=== PATIENT | male | born 1965 | race Caucasian/White ===

== ENCOUNTER 2020-12-26 11:23 | Inpatient (IN) | payer MEDICARE, OTHER ==
[~2020-12-26] VITALS: Ht 180.3 cm; Wt 76.7 kg
[2020-12-26 11:59] LABS: HEMOGLOBIN 18.6 gm/dl (14.0-17.5); RED BLOOD COUNT 6.11 M/UL (4.20-5.50); WHITE BLOOD COUNT 26.6 K/UL (4.5-11.0)
[2020-12-27] MEDS ORDERED: WELLBUTRIN XL300 M1 PO (00:29)
[2020-12-27] MEDS ORDERED: VIIBRYD20 MG PO (00:29)
[2020-12-27 05:20] LABS: HEMOGLOBIN 15.2 gm/dl (14.0-17.5); RED BLOOD COUNT 5.05 M/UL (4.20-5.50)
[2020-12-27 05:28] LABS: BUN/CREATININE RATIO 24 (0-10)
[2020-12-27 23:21] LABS: HEMOGLOBIN 10.1 gm/dl (14.0-17.5); RED BLOOD COUNT 3.44 M/UL (4.20-5.50)
[2020-12-28 03:21] LABS: RED BLOOD COUNT 3.71 M/UL (4.20-5.50)
[2020-12-28 03:22] LABS: WHITE BLOOD COUNT 4.4 K/UL (4.5-11.0)
[2020-12-28 03:32] LABS: BUN/CREATININE RATIO 25 (0-10)
[2020-12-28 06:30] LABS: HEMOGLOBIN 9.4 gm/dl (14.0-17.5)
[2020-12-28 06:51] LABS: BUN/CREATININE RATIO 22 (0-10)
--- NOTE | 2020-12-28 07:42 | NUR ---
0240 MD Pacheco at bedside, fentanyl push given by . Verbal orders received. 0500 MD aware of low BP, 500 LR bolus and albumin orders received. pt placed in trendelenburg. Orders to start TPN @ 50ml/hr, LR @ 75ml/hr for a total intake of 125ml/hr. 0515 Orders received for Levo drip. 0545 Orders placed for H&H.
[2020-12-28 07:46] LABS: HEMOGLOBIN 9.2 gm/dl (14.0-17.5); RED BLOOD COUNT 3.14 M/UL (4.20-5.50); WHITE BLOOD COUNT 6.1 K/UL (4.5-11.0)
--- NOTE | 2020-12-28 07:48 | NUR ---
See paper charting for q15min VS.
[2020-12-28 16:11] LABS: HEMOGLOBIN 9.7 gm/dl (14.0-17.5); RED BLOOD COUNT 3.29 M/UL (4.20-5.50); WHITE BLOOD COUNT 6.1 K/UL (4.5-11.0)
[2020-12-28 23:01] LABS: HEMOGLOBIN 8.9 gm/dl (14.0-17.5); RED BLOOD COUNT 2.99 M/UL (4.20-5.50); WHITE BLOOD COUNT 5.5 K/UL (4.5-11.0)
[2020-12-29 08:38] LABS: HEMOGLOBIN 8.8 gm/dl (14.0-17.5)
[2020-12-29 08:49] LABS: WHITE BLOOD COUNT 7.3 K/UL (4.5-11.0)
[2020-12-29 09:10] LABS: BUN/CREATININE RATIO 19 (0-10)
[2020-12-29 18:18] LABS: BUN/CREATININE RATIO 18 (0-10)
[2020-12-30 08:32] LABS: HEMOGLOBIN 8.2 gm/dl (14.0-17.5); RED BLOOD COUNT 2.79 M/UL (4.20-5.50); WHITE BLOOD COUNT 7.4 K/UL (4.5-11.0)
[2020-12-30 09:04] LABS: BUN/CREATININE RATIO 16 (0-10)
[2020-12-31 09:23] LABS: WHITE BLOOD COUNT 5.1 K/UL (4.5-11.0)
[2020-12-31 09:24] LABS: RED BLOOD COUNT 2.4 M/UL (4.20-5.50)
[2020-12-31 09:46] LABS: BUN/CREATININE RATIO 19 (0-10)
[2020-12-31 11:06] LABS: BUN/CREATININE RATIO 18 (0-10)
[2020-12-31 19:47] LABS: HEMOGLOBIN 11.7 gm/dl (14.0-17.5); RED BLOOD COUNT 4.24 M/UL (4.20-5.50); WHITE BLOOD COUNT 7.6 K/UL (4.5-11.0)
[2020-12-31 22:49] LABS: BUN/CREATININE RATIO 16 (0-10)
[2021-01-01 09:24] LABS: HEMOGLOBIN 10.2 gm/dl (14.0-17.5); WHITE BLOOD COUNT 9.5 K/UL (4.5-11.0)
[2021-01-01 09:30] LABS: RED BLOOD COUNT 3.81 M/UL (4.20-5.50)
[2021-01-01 10:00] LABS: BUN/CREATININE RATIO 16 (0-10)
[2021-01-01 21:32] LABS: BUN/CREATININE RATIO 15 (0-10)
[2021-01-02 04:09] LABS: HEMOGLOBIN 9.9 gm/dl (14.0-17.5); RED BLOOD COUNT 3.73 M/UL (4.20-5.50); WHITE BLOOD COUNT 10.8 K/UL (4.5-11.0)
[2021-01-02 04:50] LABS: BUN/CREATININE RATIO 12 (0-10)
[2021-01-02 08:36] LABS: HEMOGLOBIN 10.3 gm/dl (14.0-17.5); RED BLOOD COUNT 3.84 M/UL (4.20-5.50); WHITE BLOOD COUNT 12.1 K/UL (4.5-11.0)
[2021-01-02 08:58] LABS: BUN/CREATININE RATIO 13 (0-10)
[2021-01-02 11:47] LABS: BUN/CREATININE RATIO 12 (0-10)
[2021-01-03 04:40] LABS: BUN/CREATININE RATIO 14 (0-10)
[2021-01-03 04:41] LABS: HEMOGLOBIN 9.8 gm/dl (14.0-17.5); RED BLOOD COUNT 3.55 M/UL (4.20-5.50); WHITE BLOOD COUNT 11.2 K/UL (4.5-11.0)
[2021-01-04 04:41] LABS: HEMOGLOBIN 9.3 gm/dl (14.0-17.5); RED BLOOD COUNT 3.42 M/UL (4.20-5.50); WHITE BLOOD COUNT 10.8 K/UL (4.5-11.0)
[2021-01-04 05:06] LABS: BUN/CREATININE RATIO 19 (0-10)
[2021-01-05 05:33] LABS: HEMOGLOBIN 10.5 gm/dl (14.0-17.5); WHITE BLOOD COUNT 10.8 K/UL (4.5-11.0)
[2021-01-05 05:34] LABS: RED BLOOD COUNT 3.81 M/UL (4.20-5.50)
[2021-01-05 06:55] LABS: BUN/CREATININE RATIO 18 (0-10)
[2021-01-06 05:32] LABS: WHITE BLOOD COUNT 8.6 K/UL (4.5-11.0)
[2021-01-06 05:36] LABS: HEMOGLOBIN 8.4 gm/dl (14.0-17.5); RED BLOOD COUNT 3.2 M/UL (4.20-5.50)
[2021-01-06 05:41] LABS: BUN/CREATININE RATIO 20 (0-10)
[2021-01-07 02:56] LABS: HEMOGLOBIN 9.2 gm/dl (14.0-17.5); RED BLOOD COUNT 3.36 M/UL (4.20-5.50); WHITE BLOOD COUNT 6.6 K/UL (4.5-11.0)
[2021-01-07 03:23] LABS: BUN/CREATININE RATIO 20 (0-10)
[2021-01-08 03:45] LABS: BUN/CREATININE RATIO 24 (0-10)
--- NOTE | 2021-01-08 12:18 | NUR ---
PER MD ORDER WOUND VAC DISCONTINUED. WOUND CLEANED AND WET TO DRY DRESSING PLACED PATIENT TOLERATED WELL. WOUND VAC LEFT IN ROOM IN CASE MD DECIDES TO USE AGAIN. WILL CONTACT HAND POTTER WHEN NO LONGER USED FOR PROPER STORAGE.
[2021-01-09 03:10] LABS: BUN/CREATININE RATIO 25 (0-10)
[2021-01-10 05:24] LABS: HEMOGLOBIN 9.3 gm/dl (14.0-17.5); RED BLOOD COUNT 3.47 M/UL (4.20-5.50); WHITE BLOOD COUNT 5.1 K/UL (4.5-11.0)
[2021-01-10 05:56] LABS: BUN/CREATININE RATIO 29 (0-10)
--- NOTE | 2021-01-10 14:36 | NUR ---
1120 - INFORMED DR. GIBSON OF EXCESSIVE DRAINAGE FROM INCISION SITE/ DRESSING COMPLETELY SATURATED. DRAINAGE BAG ALMOST FULL. AWARE - STATED TO CONTINUE WITH W/D DRESSING CHANGES
[2021-01-11 10:53] LABS: BUN/CREATININE RATIO 28 (0-10)
--- NOTE | 2021-01-11 23:29 | NUR ---
1920 PATIENT 0MIDLINE WOUND DRAINAGE LEAKING. AREA CLEANED WITH WC AND WET TO DRY DRESSING PLACED. 2119 PATIET REQUEST DRESSING CHANGE. DRESSING CONTAINED FECAL DRAINAGE. AREA CLEANED AND REDRESSED. ILEOSTY CHANGED WELL DUE TO LEAKING.
--- NOTE | 2021-01-12 17:45 | NUR ---
PT DRESSING CHANGED X2. PT HAD ALOT OF OUTPUT THROUGH HIS FISTULA CONTAMINATING THE DRESSING. THE PT TOLERATED IT WELL AND THERE WAS NO SIGNS OF INFECTION. WILL CONTINUE TO MONITOR.
[2021-01-13 03:55] LABS: BUN/CREATININE RATIO 24 (0-10)
--- NOTE | 2021-01-13 16:00 | NUR ---
PTS DRESSING CHANGED. [id number]. PT REQUESTED TO TALK TO WOUND CARE NURSE. UCHE CAME OVER TO TALK TO HIM AND GIVE SOME ADVICE ABOUT HIS EXCOURATION AROUND HIS FISTULA. SHE GAVE HIM A BOX OF BARRIER WIPES MENTIONED BOTH THE ANTIFUNGAL AND BARRIER CREAM TO HELP WITH THE REDNESS. THE PATIENT HAD THE DRESSING CHANGED 3X THIS SHIFT. THE PATIENT TOLERATED IT WELL AND THE WOUND BED IS BRIGHT AND PINK. SOME SLOUTHING IN THE BED. NO SIGNS OF INFECTION IN THE WOUND. WILL CONTINUE TO MONITOR.
[2021-01-15] MEDS ORDERED: METHOCARBAMOL500 MG PO (09:58)
[2021-01-15] MEDS ORDERED: ENOXAPARIN40 MG/0.4 SC (09:58)
[2021-01-15] MEDS ORDERED: OXYCODONE HCL5 MG PO (09:58)
[2021-01-15] MEDS ORDERED: IMODIUM CAP 2 MG2 MG PO (09:58)
[2021-01-15] MEDS ORDERED: FLOMAX 0.4 MG0.4 MG PO (09:58)
== END 2021-01-18 13:26 | DRG 329 ==
LOC: ER1 11:23 → CDU 16:36 → M/S 23:26 → CCU 12-28 02:44 → PROG CARE 01-06 18:44 → MED SURG 4 01-13 15:17
PROVIDERS: Family Medicine; Surgery; ADMIT Surgery
PROC: 0DNU0ZZ Release Omentum, Open Approach (ICD-10-PCS; 2020-12-27)
PROC: 30233N1 Transfusion of Nonautologous Red Blood Cells into Peripheral Vein, Percutaneous Approach (ICD-10-PCS; 2020-12-27)
PROC: 0D1B0Z4 Bypass Ileum to Cutaneous, Open Approach (ICD-10-PCS; 2020-12-27)
PROC: 0DBB0ZZ Excision of Ileum, Open Approach (ICD-10-PCS; principal; 2020-12-27 16:59)
PROC: B24BZZ4 Ultrasonography of Heart with Aorta, Transesophageal (ICD-10-PCS; 2020-12-29)
PROC: 3E0336Z Introduction of Nutritional Substance into Peripheral Vein, Percutaneous Approach (ICD-10-PCS; 2020-12-31)
DX: K43.3 Parastomal hernia with obstruction, without gangrene (principal); R65.11 Systemic inflammatory response syndrome (SIRS) of non-infectious origin with acute organ dysfunction; K65.1 Peritoneal abscess; K51.90 Ulcerative colitis, unspecified, without complications; N17.9 Acute kidney failure, unspecified; D62 Acute posthemorrhagic anemia; K63.2 Fistula of intestine; E87.1 Hypo-osmolality and hyponatremia; E46 Unspecified protein-calorie malnutrition; K56.50 Intestinal adhesions [bands], unspecified as to partial versus complete obstruction; I08.1 Rheumatic disorders of both mitral and tricuspid valves; F32.9 Major depressive disorder, single episode, unspecified; F41.9 Anxiety disorder, unspecified; Y83.8 Other surgical procedures as the cause of abnormal reaction of the patient, or of later complication, without mention of misadventure at the time of the procedure; T81.49XA Infection following a procedure, other surgical site, initial encounter; Z20.822 Contact with and (suspected) exposure to COVID-19; E83.42 Hypomagnesemia; E83.39 Other disorders of phosphorus metabolism; E87.6 Hypokalemia; E86.0 Dehydration; Z90.49 Acquired absence of other specified parts of digestive tract; Z87.891 Personal history of nicotine dependence; Z68.23 Body mass index [BMI] 23.0-23.9, adult
CPT/HCPCS: ECHO; 36415; 36430; 36600; 71045; 74018; 80048; 80053; 80307; 81001; 82803; 82962; 83605; 83690; 83735; 84100; 84439; 84443; 84466; 84478; 85014; 85018; 85025; 85027; 85610; 85730; 86850; 86900; 86901; 86920; 87040; 87086; 93005; 93306; 94002; 94760; 96365; 96375; 96376; 97110; 97116; 97116-GP-CQ; 97162; 97166; 97530-GP-CQ; 97535; 99285; C1751; J0610; J1100; J1170; J1644; J1650; J1885; J2001; J2185; J2250; J2370; J2405; J2543; J2704; J2710; J2765; J3010; J3370; J3475; J3480; J7030; J7040; J7120; P9016; P9045; Q9963; Q9965; Q9967; U0002